=== PATIENT | female | born 1960 | race Two or more races ===

== ENCOUNTER 2019-02-20 19:05 | Emergency (ER) | payer SELFPAY ==
[~2019-02-20] VITALS: Ht 162.6 cm; Wt 92.3 kg
[2019-02-20 19:19] VITALS: BP 209/84; PULSE 68; RESP 18; Ht 162.6 cm; Wt 92.3 kg
== END 2019-02-20 23:21 | disposition left against medical advice (07) ==
LOC: FTE 19:05
DX: Z53.21 Procedure and treatment not carried out due to patient leaving prior to being seen by health care provider (principal)
CPT/HCPCS: 82962